=== PATIENT | male | born 1990 | race Two or more races ===

== ENCOUNTER → 2016-12-13 | Outpatient (CLI) | payer SELFPAY | LOC: MW.LAB 11:44 | PROVIDERS: ATTEND Family Medicine | DX: Z02.89 Encounter for other administrative examinations (principal) | CPT/HCPCS: 36415; 86480; 86592; 86787; 87591 ==

== ENCOUNTER 2022-05-10 18:24 | Emergency (ER) | payer OTHER | END 2022-05-10 20:45 | disposition home or self-care (01) | LOC: MW.ED 18:24 | DX: S62.632A Displaced fracture of distal phalanx of right middle finger, initial encounter for closed fracture (principal); W20.8XXA Other cause of strike by thrown, projected or falling object, initial encounter | CPT/HCPCS: 73130-26-RT; 73130-RT; 99283 ==